=== PATIENT | male | born 1960 | race Caucasian/White ===

== ENCOUNTER 2021-09-16 19:16 | Emergency (ER) | payer BC, SELFPAY ==
[~2021-09-16] VITALS: Ht 167.6 cm; Wt 68.0 kg
[2021-09-16 20:01] VITALS: BP_SYST 115
[2021-09-16 21:36] LABS: BASOPHILS % (AUTO) 0.3 % (0.0-2.0); EOSINOPHILS # (AUTO) 0.1 K/uL (0.0-0.4); EOSINOPHILS % (AUTO) 0.5 % (0.0-4.0); HEMATOCRIT 37.1 % (36-54); HEMOGLOBIN 12.6 g/dL (14.0-18.0); LYMPHOCYTES # (AUTO) 1.7 K/uL (1.0-5.5); LYMPHOCYTES % (AUTO) 13.2 % (20.5-51.5); MEAN CORPUSCULAR HEMOGLOBIN 30 pg (27-31); MEAN CORPUSCULAR HGB CONC 34 % (32-36); MEAN CORPUSCULAR VOLUME 87 fL (79.0-98.0); MONOCYTES # (AUTO) 0.8 K/uL (0.0-1.0); MONOCYTES % (AUTO) 5.9 % (1.7-9.3); NEUTROPHILS # (AUTO) 10.5 K/uL (1.8-7.7); NEUTROPHILS % (AUTO) 80.1 % (40.0-70.0); PLATELET COUNT (AUTO) 332 K/uL (130-430); RED BLOOD CELL COUNT(AUTO) 4.29 MIL/uL (4.2-6.2); RED CELL DISTRIBUTION WIDTH 12.7 % (9.0-15.0); WHITE BLOOD COUNT (AUTO) 13.1 K/uL (4.8-10.8)
--- NOTE | 2021-09-16 22:16 | NUR ---
Urine specimen collected and walked to lab.
[2021-09-16 23:17] LABS: CALCIUM 8.3 mg/dL (8.4-11.0); CREATININE 0.7 mg/dL (0.55-1.30); POTASSIUM 3.5 mmol/L (3.5-5.1)
[2021-09-16 23:18] LABS: ALBUMIN 3.2 g/dL (3.4-4.8); TOTAL BILIRUBIN 0.3 mg/dL (0.0-1.0)
--- NOTE | 2021-09-16 23:33 | NUR ---
AAOX4 NAD noted.V/s stable per bedside monitor.MD at bedside. Pt stated today is [birth year] birthday he feels fine and he do not want to stay. Md stated to let pt sign AMA form. All risk and benifits explained. Pt verbalized understanding of teachings. MD encourged pt to come back if needed.
--- NOTE | 2021-09-16 23:45 | NUR ---
Near syncope education provided. 18g R AC discontinued. No bleeding swelling noted to R AC. Encouraged pt to come back to ER if needed. AMA form signed by pt and placed on chart.
--- NOTE | 2021-09-17 00:09 | NUR ---
Family arrived for transport. Staff escorted pt to lobby via wheelchair without incident.
[2021-09-17 00:10] VITALS: BP_SYST 122
== END 2021-09-17 00:09 | disposition left against medical advice (07) ==
LOC: SED 19:16
DX: R55 Syncope and collapse (principal); I10 Essential (primary) hypertension; E11.9 Type 2 diabetes mellitus without complications
CPT/HCPCS: 36415; 71045; 80053; 82962; 84484; 85025; 93005; 99285